=== PATIENT | male | born 2000 | race Caucasian/White ===

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

== ENCOUNTER 2019-11-20 22:55 | Emergency (ER) | payer OTHER, BC, SELFPAY ==
[2018-02-16 11:15] VITALS: BMI 23.8
[2019-11-20 22:55] VITALS: BP 123/70; PULSE 62; RESP 15; TEMP 36.6; O2SAT 100; BMI 23.5
--- NOTE | 2019-11-20 23:25 | RAD_ITS ---
HISTORY: pain, edema and small lac to index finger. reports is hand was pulled into a winding belt at work. ADDITIONAL HISTORY: None provided. EXAMINATION/TECHNIQUE: XR Hand Min 3 Views Left Number of images including paperwork: 3 COMPARISON: None FINDINGS: BONES: Avulsion fracture of the base of the proximal phalanx of the index finger, fragments displaced toward the ulnar aspect of the MCP joint. JOINTS: No subluxation. SOFT TISSUES: No distinct foreign body. RAD/Hand Min 3 Views IMPRESSION: Avulsion fracture of the index finger proximal phalanx. at 2336 Reported and signed by: Albania Gray MD Electronically Signed: Albania Gray MD at 23:36 EDT Tel , Service support ,
[2019-11-20] MEDS: HYDROcodone Bitartrate/Apap 5/325 Tablet PO (23:32)
--- NOTE | 2019-11-20 23:49 | ED.VISSUMM ---
- ER Visit Summary Date of Service: 11/20/19 Chief Complaint: Left hand pain History of Present Illness: The patient is a 18 M who presents with left hand pain. He got his left hand caught in a belt at work. He works at [employer]. He was able to get his hand out. He is complaining of pain over the radial portion of the hand into the index finger. He is up-to-date on immunizations. He sustained a very superficial laceration on his index finger as well. He is left-hand dominant. Physical Examination: Vital signs reviewed. Left hand exam reveals tenderness over the second and third metacarpals up to the index finger. There is mild swelling. He has decreased range of motion secondary to pain. There is a small superficial laceration between the PIP and MCP joint of the second finger on the left hand. Test Results: Left hand x-ray reveals an evulsion fracture of the proximal phalanx of the left index finger. Emergency Department Course and Treatment: Patient was given [place] for pain control. I looked at his laceration and he states that he cut himself with a knife about a week ago and this is the same exact area. I cleaned this area and it is very superficial but I do not feel it needs to be repaired. It is not in the area of the fracture. This fracture is closed. The patient was placed in an AlumaFoam splint. I will give her [place] for pain control. Worker's Compensation forms will be filled out. He will follow-up with the [facility] and [facility]opedics Treatment Plan: [] Disposition: Discharge Impression: Left index finger fracture, proximal phalanx, closed This note was generated with [employer] dictation software. It may contain incorrect words, spelling, and punctuation that were not noted in review of the chart prior to signing ED Disposition - Plan for ED Patient: Disposition: Home or Assisted Living Instructions: ED FINGER FRACTURE Closed Prescriptions: Hydrocodone Bitart/Apap 5-325 [[place] 5MG-325MG] 1 tablet PO Q6H PRN PRN 3 Days #10 tablet PRN Reason: Pain Transmission Status: Received by [id number] Referrals: Jayjay Pineda DO [STAFF PHYSICIAN] - [facility] [GROUP OF PHYSICIANS] -
== END 2019-11-21 00:07 | disposition home or self-care (01) ==
LOC: ED 11-21 00:03
PROVIDERS: Emergency Provider Emergency Medicine
DX: S62.611A Displaced fracture of proximal phalanx of left index finger, initial encounter for closed fracture (principal); S61.211A Laceration without foreign body of left index finger without damage to nail, initial encounter; W31.9XXA Contact with unspecified machinery, initial encounter; W26.0XXA Contact with knife, initial encounter; Y93.9 Activity, unspecified; Y92.9 Unspecified place or not applicable
CPT/HCPCS: 73130; 99283

== ENCOUNTER 2024-01-17 10:11 | Emergency (ER) | payer BC, SELFPAY ==
[2024-01-17 10:12] VITALS: BP 135/91; PULSE 87; RESP 18; TEMP 36.8; O2SAT 99; BMI 29.0
[2024-01-17 11:11] VITALS: BP 125/88; PULSE 84; RESP 19; O2SAT 96
--- NOTE | 2024-01-17 11:16 | RAD_ITS ---
STUDY: X-RAY CHEST REASON FOR EXAM: Male, 23 years old. chest pain TECHNIQUE: PA and lateral views of the chest. COMPARISON: None. FINDINGS: No demonstrated consolidation. The lungs are clear and expanded. There is no demonstrated pleural abnormality. Normal size heart. Normal mediastinum and sadi. Normal visualized pulmonary arteries. Normal visualized aortic arch and descending thoracic aorta. Normal visualized thoracic spine. Normal visualized ribs, clavicles, and shoulders. There is no demonstrated abnormality of the visualized soft tissue structures of the upper abdomen. RAD/Chest PA and Lateral IMPRESSION: Normal x-ray examination of the chest. Electronically Signed: Avi Linder MD at 12:19 [facility] ,
--- NOTE | 2024-01-17 11:16 | EKG12_ITS ---
Test Reason : Blood Pressure : */* mmHG Vent. Rate : 79 BPM Atrial Rate : 79 BPM P-R Int : 136 ms QRS Dur : 92 ms QT Int : 372 ms P-R-T Axes : 50 70 29 degrees QTcB Int : 426 ms Normal sinus rhythm Normal ECG Confirmed by Fly Johnson ([id number]), film editor SVEN COPELAND ([id number]) on 01/20/2024 6:53:08 AM Referred By: Confirmed By: Fly Johnson
--- NOTE | 2024-01-17 11:30 | ED.VIS.CHEST ---
HPI History of Present Illness Chief Complaint: Chest Pain Narrative Narrative: Chief complaint and HPI: Chest pain. 23-year-old male with no significant past medical history presents for evaluation of intermittent left-sided chest pain. He describes the pain as sharp and worse with deep inspiration. Patient states that he occasionally gets short of breath secondary to the pain. Pain started on Saturday. Does endorse lifting 50 pounds periodically while working. He denies any fever, chills, URI symptoms, cough, abdominal pain, nausea, vomiting. Denies any recent travel or surgery. Not on any hormonal therapy. Denies any bilateral lower extremity swelling or pain. Denies any history of cardiac disease in his family at a young age. Review of systems: See HPI Medications: As listed on the chart Allergies: As listed on the chart PFSH: Per chart Vital signs: As listed on the chart. Reviewed. Physical exam: Gen: A&O x3, NAD Head: Normocephalic, atraumatic Eyes: No sclera icterus, conjunctiva clear ENT: Moist mucous membranes Neck: Trachea midline, No JVD CV: RRR, no murmurs, no peripheral edema, chest pain is somewhat reproducible at the costochondral angles of the left ribs Resp: Lungs CTA BL, no w/r/c GI: Abd soft, non-distended, non-tender, no r/r/g Musc: Full ROM, no deformity Skin: Warm, dry Neuro: Alert, oriented, grossly intact, sensation intact Psych: Cooperative, appropriate mood and affect PFS PFS Home Medications ?Medication ?Instructions ?Recorded ?Last Taken ?Type NK 01/17/24 Unknown History Allergy/AdvReac Type Severity Reaction Status Date / Time No Known Allergies Allergy Verified 01/17/24 10:12 Surgical History History of tonsillectomy Social History (Updated 02/16/18 @ 11:32 by OSBALDO Izaguirre) Smoking Status: Never smoker alcohol intake: never EXAM Physical Exam Const Vital Signs: 01/17/24 10:12 01/17/24 11:11 01/17/24 12:00 Temperature 98.2 F Temperature Source Oral Pulse Rate 87 84 79 Respiratory Rate 18 19 H 18 Blood Pressure 135/91 H 125/88 H 122/95 H Blood Pressure Mean 105 100 104 Pulse Ox 99 96 96 Oxygen Delivery Method Room Air Room Air Room Air 01/17/24 13:00 01/17/24 13:15 Temperature 98.2 F Temperature Source Pulse Rate 79 Respiratory Rate 14 14 Blood Pressure 113/73 113/73 Blood Pressure Mean 86 86 Pulse Ox 96 Oxygen Delivery Method MDM MDM MDM Narrative Medical decision making narrative: 23-year-old male with no significant past medical history presents for evaluation of intermittent left-sided chest pain. Chest pain has been ongoing for several days. Differential diagnosis includes but is not limited to musculoskeletal strain, costochondritis, pleurisy, pneumonia, viral illness. Suspect less likely ACS or PE. Ibuprofen ordered for pain. Cardiac/respiratory workup ordered. EKG and chest x-ray reviewed see below. CBC with mild leukocytosis of 13.3. No anemia. D-dimer unremarkable. BMP relatively unremarkable. Troponin unremarkable. At this point in time, no clear etiology for patient's pain however I suspect that it is secondary to musculoskeletal strain versus costochondritis. No clear etiology for patient's leukocytosis but may be early viral illness as well. Patient is stable to discharge home. Tylenol Motrin as needed for pain. Follow-up with PCP. Return precautions explained. He confirmed understand the plan. EKG: Interpreted by me/EM physician: EKG shows normal sinus rhythm without any acute ischemic changes. Heart rate 79. Diagnostic: Interpreted by me/EM physician: Chest x-ray without pneumonia, effusion, cardiomegaly, pneumothorax Impression: 1. Chest pain Lab Data Labs: Laboratory Results - last 24 hr 01/17/24 11:30 WBC 13.3 H RBC 4.90 Hgb 15.1 Hct 44.4 MCV 90.6 MCH 30.8 MCHC 34.0 RDW Std Deviation 41.7 RDW Coeff of Monse 12.6 Plt Count 395 MPV 8.2 Immature Gran % (Auto) 0.500 Neut % (Auto) 60.9 Lymph % (Auto) 26.1 [place] % (Auto) 11.4 H Eos % (Auto) 0.5 Baso % (Auto) 0.6 Absolute Neuts (auto) 8.1 H Absolute Lymphs (auto) 3.46 Nucleated RBC % 0 Differential Comment COMMENT Diff Path Review May foll D-Dimer Quant (PE/DVT) 0.37 Sodium 141 Potassium 3.6 Chloride 109 H Carbon Dioxide 28.0 Anion Gap 4 L BUN 11 Creatinine 0.92 Estim Creat Clear Calc 128.23 Est GFR (MDRD) Af Amer 130 Est GFR (MDRD) Non-Af 108 BUN/Creatinine Ratio 12.0 Glucose 123 H Calcium 9.0 Troponin I High Sens 4 Radiography Diagnostic Testing: Clinical Impression(s) from Imaging Studies Chest X-Ray 01/17/24 11:16 IMPRESSION: Normal x-ray examination of the chest. Electronically Signed: Avi Linder MD at 12:19 EST Reading Location ID and State: [facility] / [place] , Service support , Discharge Plan Triage Chief Complaint: Chest Pain ED Provider: Camacho Laureano Dx/Rx/DC Orders Instructions: Chest Pain [facility] Ch Prescriptions: No Action NK Primary Care Provider: Care Physician,No Primary Referrals: Heriberto Olson MD [Med Staff - Active Staff] - 3-5 Days Care Physician,No Primary [Primary Care Provider] - 3-5 Days Activity Restrictions/Additional Instructions: Follow-up with your primary care physician if you do not have 1 see the 1 provided above. Motrin and Tylenol as needed for pain. Return back to the ED if symptoms change or worsen. Print Language: Citizen Of [place] Disposition Disposition: Home, Self Care Discharge Date/Time: 01/17/24 13:16
[2024-01-17] MEDS: Ibuprofen 200 MG Tablet 400 MG PO (11:40)
[2024-01-17 11:44] LABS: Absolute Lymphocyte Count 3.46 X10^3/uL (0.83-4.51); Absolute Neutrophil Count 8.1 X10^3/uL (2.0-7.7); Basophil# 0.08 X10^3/uL; Basophil% 0.6 % (0-1); Eosinophil# 0.07 X10^3/uL; Eosinophils% 0.5 % (0-5); Hematocrit 44.4 % (40-54); Hemoglobin 15.1 g/dL (13.0-16.5); Lymphocyte # 3.46 X10^3/ul (0.83-4.51); Lymphocyte % 26.1 % (19-41); Mean Corpuscular Hgb 30.8 pg (27.0-32.0); Mean Corpuscular Volume 90.6 fL (80-94); Mean Platelet Vol. 8.2 fl (6.2-12.0); Monocyte# 1.51 X10^3/uL; Monocyte% 11.4 % (0-10); NRBC Flagged by Analyzer 0 % (0-5); Neutrophil # 8.08 X10^3/uL (2.7-7.7); Neutrophil % 60.9 % (47-70); POSITIVE DIFFERENTIAL YES; Platelet Count 395 K/mm3 (150-450); RBC Distribution Width CV 12.6 % (11.6-14.6); RBC Distribution Width SD 41.7 fl (35.1-43.9); White Blood Count 13.3 K/mm3 (4.4-11.0)
[2024-01-17 11:45] LABS: Differential Indicated SCAN CRITERIA MET
--- NOTE | 2024-01-17 11:45 | ED.RN ---
Patient transported to radiology
[2024-01-17 11:51] LABS: D-Dimer Quantitative (DVT/PE) 0.37 FEU/ug/m (0.27-0.49)
--- NOTE | 2024-01-17 11:51 | ED.RN ---
Patient returned to room from xray
[2024-01-17 11:57] LABS: Anion Gap 4 (5-15); BUN 11 mg/dL (7-18); Chloride 109 mmol/L (98-107); Creatinine, Serum 0.92 mg/dL (0.70-1.30); EST Glomerular Filtration Rate 108 mL/min (>60); Est Glom Filt Rate - Afr Amer 130 mL/min (>60); Estimated Creatinine Clearance 128.23 ml/min; Glucose 123 mg/dL (74-106); Potassium 3.6 mmol/L (3.5-5.1); Sodium Level 141 mmol/L (136-145); Troponin-I HS 4 pg/mL (3.0-78.0)
[2024-01-17 12:00] VITALS: BP 122/95; PULSE 79; RESP 18; O2SAT 96
--- NOTE | 2024-01-17 12:45 | ED.RN ---
Dr. Bianchi bedside
[2024-01-17 13:00] VITALS: BP 113/73; RESP 14
[2024-01-17 13:15] VITALS: BP 113/73; PULSE 79; RESP 14; TEMP 36.8; O2SAT 96
[2024-01-20 14:37] LABS: Pathologist Review Reviewed
== END 2024-01-17 13:16 | disposition home or self-care (01) ==
PROVIDERS: Emergency Provider Surgery; Visit Provider Surgery
DX: R07.9 Chest pain, unspecified (principal)
CPT/HCPCS: 71046; 80048; 84484; 85025; 85379; 93005; 99284